=== PATIENT | male | born 1965 ===

== ENCOUNTER 2016-07-17 07:22 | Emergency (ER) | payer MEDICAID ==
[2016-07-17 07:22] VITALS: BMI 30.2
[2016-07-17 07:26] VITALS: BP 134/76; PULSE 63; RESP 18; TEMP 97.7; O2SAT 99
--- NOTE | 2016-07-17 07:39 | ED PDOC ---
HPI: CCC, URI, Sore Throat Time Seen by Provider: 07/17/16 07:31 Chief Complaint (Provider): sore throat History Per: Patient History/Exam Limitations: no limitations Have you had recent travel within the past 21 days to any of the following countries: [place], [place], [place] or [place]?: No Onset/Duration Of Symptoms: Days (x 1) Location Of Pain: Throat Sick Contacts (Context): None Associated Symptoms: Sore Throat. denies: Fever, Chills, Cough, Sputum Additional Complaint(s): Connor Gonzalez is a 51 year old male, with a previous medical history of hypercholesterolemia, who presents to the ED with complaints of a sore throat ongoing since yesterday. Patient denies any fever, cough or shortness of breath. PMD: none provided Past Medical History Reviewed: Historical Data, Nursing Documentation, Vital Signs Vital Signs: Last Vital Signs Temp 97.7 F 07/17/16 07:25 Pulse 63 07/17/16 07:25 Resp 18 07/17/16 07:25 BP 134/76 07/17/16 07:25 Pulse Ox 99 07/17/16 07:41 - Medical History PMH: Hypercholesterolemia, Hyperlipidemia Denies: Chronic Kidney Disease - Surgical History Surgical History: Cholecystectomy - Family History Family History: States: Unknown Family Hx - Home Medications Home Medications: Ambulatory Orders Medication Instructions Recorded Dicyclomine [Dicyclomine HCl] 10 mg PO TID 08/08/14 Esomeprazole Magnesium [Nexium] 40 mg PO DAILY #28 ecc 08/08/14 traMADol [Ultram] 50 mg PO TID #16 tab 08/08/14 Cetirizine Hydrochloride [Zyrtec] 10 mg PO DAILY #4 tab 01/07/15 Famotidine [Pepcid] 20 mg PO BID #8 tab 01/07/15 Prednisone 50 mg PO DAILY #4 tab 01/07/15 Cetirizine Hydrochloride [Zyrtec] 10 mg PO DAILY #30 tab 02/09/15 Prednisone 20 mg PO DAILY #5 tab 02/09/15 Albuterol HFA [Ventolin HFA 90 1 - 2 puff IH Q6 PRN #1 inhaler 02/22/16 mcg/actuation (8 g)] Azithromycin [Zithromax] 250 mg PO QAM #1 pkg 02/22/16 predniSONE [predniSONE Tab] 60 mg PO QAM #12 tab 02/22/16 Azithromycin [Zithromax] 250 mg PO DAILY #6 tab 07/17/16 - Allergies Allergies/Adverse Reactions: Allergies Allergy/AdvReac Type Severity Reaction Status Date / Time No Known Allergies Allergy Verified 02/09/15 02:29 Review of Systems ROS Statement: Except As Marked, All Systems Reviewed And Found Negative Constitutional: Negative for: Fever, Chills ENT: Positive for: Throat Pain Respiratory: Negative for: Cough, Shortness of Breath Physical Exam - Reviewed Nursing Documentation Reviewed: Yes Vital Signs Reviewed: Yes - Physical Exam Appears: Positive for: Well, Non-toxic, No Acute Distress ENT: Positive for: Pharyngeal Erythema. Negative for: Tonsillar Exudate, Tonsillar Swelling Neck: Positive for: Normal, Painless ROM, Supple Cardiovascular/Chest: Positive for: Regular Rate, Rhythm Respiratory: Positive for: CNT, Normal Breath Sounds Neurologic/Psych: Positive for: Alert, Oriented - ECG O2 Sat by Pulse Oximetry: 99 (RA) Pulse Ox Interpretation: Normal Medical Decision Making Medical Decision Making: Initial Impression: Throat pain Initial Plan: * rapid strep * reevaluation Scribe Attestation: Documented by Kami Bello, acting as a scribe for Gaurav Mercer MD. Provider Scribe Attestation: All medical record entries made by the Scribe were at my direction and personally dictated by me. I have reviewed the chart and agree that the record accurately reflects my personal performance of the history, physical exam, medical decision making, and the department course for this patient. I have also personally directed, reviewed, and agree with the discharge instructions and disposition. Disposition - Clinical Impression Clinical Impression: Pharyngitis - Patient ED Disposition Is Patient to be Admitted: No - Disposition Referrals: [facility] [Outside] Disposition: Routine/Home Disposition Time: 07:40 Condition: FAIR Prescriptions: Azithromycin [Zithromax] 250 mg PO DAILY #6 tab Instructions: Pharyngitis (ED)
== END 2016-07-17 07:50 | disposition home or self-care (01) ==
LOC: H.ER 07:22
DX: J02.9 Acute pharyngitis, unspecified (principal); E78.00 Pure hypercholesterolemia, unspecified

== ENCOUNTER 2017-01-25 20:48 | Emergency (ER) | payer MEDICAID ==
[2017-01-25 20:49] VITALS: BMI 29.2
[2017-01-25 21:45] VITALS: BP 148/71; PULSE 97; RESP 20; TEMP 97.6; O2SAT 97
--- NOTE | 2017-01-25 23:26 | ED PDOC ---
HPI: General Adult Time Seen by Provider: 01/25/17 22:44 Chief Complaint (Nursing): Dental Pain Chief Complaint (Provider): Mouth pain History Per: Patient History/Exam Limitations: no limitations Onset/Duration Of Symptoms: Hrs (2-3 hours prior to arrival) Severity: Mild (pain) Additional Complaint(s): Patient is a 51 yo male who presents to the ED reporting onset of mouth pain this evening that began after eating soup. He notes there is a blister in his mouth, and was advised by triage when he came here that it appeared bloody. He denies any history of similar symptoms, and denies any blood thinner use. He denies any sore throat. PMD: Mariel Nugent Past Medical History Reviewed: Historical Data, Nursing Documentation, Vital Signs Vital Signs: Last Vital Signs Temp 97.6 F 01/25/17 21:43 Pulse 97 H 01/25/17 21:43 Resp 20 01/25/17 21:43 BP 148/71 01/25/17 21:43 Pulse Ox 97 01/25/17 23:37 - Medical History PMH: Hypercholesterolemia, Hyperlipidemia Denies: Chronic Kidney Disease - Surgical History Surgical History: Cholecystectomy - Family History Family History: States: Unknown Family Hx - Social History Current smoker - smoking cessation education provided: No - Home Medications Home Medications: Ambulatory Orders Medication Instructions Recorded Dicyclomine [Dicyclomine HCl] 10 mg PO TID 08/08/14 Esomeprazole Magnesium [Nexium] 40 mg PO DAILY #28 ecc 08/08/14 traMADol [Ultram] 50 mg PO TID #16 tab 08/08/14 Cetirizine Hydrochloride [Zyrtec] 10 mg PO DAILY #4 tab 01/07/15 Famotidine [Pepcid] 20 mg PO BID #8 tab 01/07/15 Prednisone 50 mg PO DAILY #4 tab 01/07/15 Cetirizine Hydrochloride [Zyrtec] 10 mg PO DAILY #30 tab 02/09/15 Prednisone 20 mg PO DAILY #5 tab 02/09/15 Albuterol HFA [Ventolin HFA 90 1 - 2 puff IH Q6 PRN #1 inhaler 02/22/16 mcg/actuation (8 g)] Azithromycin [Zithromax] 250 mg PO QAM #1 pkg 02/22/16 predniSONE [predniSONE Tab] 60 mg PO QAM #12 tab 02/22/16 Azithromycin [Zithromax] 250 mg PO DAILY #6 tab 07/17/16 Albuterol HFA [Ventolin HFA 90 2 puff IH Q6 #200 puff 01/15/17 mcg/actuation (8 g)] Dextromethorphan Polistirex 30 mg PO BID #100 scar.er.12h 01/15/17 [Delsym] Mag&Al/Simet/Diphen/Lido [First 5 ml MM TID 2 Days #1 kit 01/25/17 Magic Mouthwash] - Allergies Allergies/Adverse Reactions: Allergies Allergy/AdvReac Type Severity Reaction Status Date / Time No Known Allergies Allergy Verified 02/09/15 02:29 Review of Systems Constitutional: Negative for: Fever, Chills ENT: Positive for: Mouth Pain (left upper mouth pain) Skin: Positive for: Rash (left upper mouth pain and blister) Neurological: Negative for: Change in Speech, Confusion, Altered Mental Status, Headache Physical Exam - Reviewed Vital Signs Reviewed: Yes - Physical Exam Appears: Positive for: Well. Negative for: Non-toxic, No Acute Distress Head Exam: Positive for: ATRAUMATIC, NORMAL INSPECTION, NORMOCEPHALIC Skin: Positive for: Normal Color, Warm ENT: Positive for: Pharynx Is (clear, no erythema, no edema), Other (blood blister approximately 1cm in diameter noted to the roof of the mouth on the left , (+)mild tenderness to palpation, (-)active bleeding). Negative for: Pharyngeal Erythema Neck: Positive for: Normal, Painless ROM, Supple Neurologic/Psych: Positive for: Alert, nanofabrication specialist II-XII, Oriented - ECG O2 Sat by Pulse Oximetry: 97 Pulse Ox Interpretation: Normal Medical Decision Making Medical Decision Making: Patient seen and examined. He was advised that he has a blood blister to the roof of the mouth which could have been sustained from eating hot soup. He advised to use magic mouthwash for pain, and to do salt water gargles. He was advised to f/u with his PMD or dentist, and return to the ED for any worsening or change in symptoms. Disposition - Clinical Impression Clinical Impression: Blood blister - Patient ED Disposition Is Patient to be Admitted: No Counseled Patient/Family Regarding: Diagnosis, Need For Followup, Rx Given - Disposition Referrals: [facility] [place] [Outside] Disposition: Routine/Home Disposition Time: 23:31 Condition: STABLE Additional Instructions: Salt water gargles or magic mouthwash. F/U with PMD/dentist, and return for any worsneing or change in symptoms. Prescriptions: Mag&Al/Simet/Diphen/Lido [First Magic Mouthwash] 5 ml MM TID 2 Days #1 kit Forms: [employer] (Yi) Print Language: WOLOF
== END 2017-01-25 23:52 | disposition home or self-care (01) ==
LOC: H.ER 20:48
DX: K13.79 Other lesions of oral mucosa (principal); E78.00 Pure hypercholesterolemia, unspecified

== ENCOUNTER 2017-07-15 04:15 | Emergency (ER) | payer MEDICAID ==
[2017-07-15 04:15] VITALS: BMI 29.2
[2017-07-15 04:36] VITALS: RESP 16; O2SAT 99
[2017-07-15] MEDS ORDERED: Apap-Butalbital-Caffeine 325-50-40mg Tab PO STA (04:49)
[2017-07-15] MEDS ORDERED: Apap-Butalbital-Caffeine 325-50-40mg Tab ONE (04:57)
--- NOTE | 2017-07-15 05:02 | ED PDOC ---
HPI: Headache Time Seen by Provider: 07/15/17 04:48 Chief Complaint (Nursing): Headache Chief Complaint (Provider): Headache History Per: Patient History/Exam Limitations: no limitations Onset/Duration Of Symptoms: Days (x3), Intermittent Episodes Current Symptoms Are (Timing): Still Present Preceeding Symptoms: None Associated Symptoms: denies: Photophobia Additional Complaint(s): 52 year old male presents to ED with complaints of intermittent headaches x3 days and has no past medical history. (+) drainage from his left ear last week and throat pain. (-) fever, neck pain, or light sensitivity. PCP: R[facility]i Past Medical History Reviewed: Historical Data, Nursing Documentation, Vital Signs Vital Signs: Last Vital Signs Temp 97.5 F L 07/15/17 04:32 Pulse 62 07/15/17 04:32 Resp 16 07/15/17 04:32 BP 137/87 07/15/17 04:32 Pulse Ox 99 07/15/17 04:32 - Medical History PMH: Hypercholesterolemia, Hyperlipidemia Denies: Chronic Kidney Disease - Surgical History Surgical History: Cholecystectomy - Family History Family History: States: Unknown Family Hx - Social History Current smoker - smoking cessation education provided: No Ex-Smoker (has not smoked in the last 12 months): No Alcohol: None Drugs: Denies - Home Medications Home Medications: Ambulatory Orders Medication Instructions Recorded Dicyclomine [Dicyclomine HCl] 10 mg PO TID 08/08/14 Esomeprazole Magnesium [Nexium] 40 mg PO DAILY #28 ecc 08/08/14 traMADol [Ultram] 50 mg PO TID #16 tab 08/08/14 Cetirizine Hydrochloride [Zyrtec] 10 mg PO DAILY #4 tab 01/07/15 Famotidine [Pepcid] 20 mg PO BID #8 tab 01/07/15 Prednisone 50 mg PO DAILY #4 tab 01/07/15 Cetirizine Hydrochloride [Zyrtec] 10 mg PO DAILY #30 tab 02/09/15 Prednisone 20 mg PO DAILY #5 tab 02/09/15 Albuterol HFA [Ventolin HFA 90 1 - 2 puff IH Q6 PRN #1 inhaler 02/22/16 mcg/actuation (8 g)] Azithromycin [Zithromax] 250 mg PO QAM #1 pkg 02/22/16 predniSONE [predniSONE Tab] 60 mg PO QAM #12 tab 02/22/16 Azithromycin [Zithromax] 250 mg PO DAILY #6 tab 07/17/16 Albuterol HFA [Ventolin HFA 90 2 puff IH Q6 #200 puff 01/15/17 mcg/actuation (8 g)] Dextromethorphan Polistirex 30 mg PO BID #100 scar.er.12h 01/15/17 [Delsym] Mag&Al/Simet/Diphen/Lido [First 5 ml MM TID 2 Days #1 kit 01/25/17 Magic Mouthwash] Acetaminophen/Butalbital/Caf 1 - 2 tab PO Q6 PRN #12 tab 07/15/17 [Fioricet] - Allergies Allergies/Adverse Reactions: Allergies Allergy/AdvReac Type Severity Reaction Status Date / Time No Known Allergies Allergy Verified 07/15/17 04:31 Review of Systems ROS Statement: Except As Marked, All Systems Reviewed And Found Negative Constitutional: Negative for: Fever Eyes: Negative for: Other ((-) light sensitivity) ENT: Positive for: Ear Discharge (from left ear) Musculoskeletal: Negative for: Neck Pain Neurological: Positive for: Headache Physical Exam - Reviewed Nursing Documentation Reviewed: Yes Vital Signs Reviewed: Yes - Physical Exam Appears: Positive for: Non-toxic, No Acute Distress Skin: Positive for: Normal Color, Warm, Dry Eye Exam: Positive for: Normal appearance, EOMI, PERRL ENT: Positive for: Tonsillar Swelling ( bilaterally with mild erythema). Negative for: Normal ENT Inspection, Tonsillar Exudate Neck: Positive for: Normal, Painless ROM, Supple Cardiovascular/Chest: Positive for: Regular Rate, Rhythm. Negative for: Murmur Respiratory: Positive for: Normal Breath Sounds. Negative for: Respiratory Distress Extremity: Positive for: Normal ROM. Negative for: Deformity Neurologic/Psych: Positive for: Alert, Oriented. Negative for: Motor/Sensory Deficits - ECG O2 Sat by Pulse Oximetry: 99 (RA) Pulse Ox Interpretation: Normal Medical Decision Making Medical Decision Makin Initial impression: headache in setting of flu-like symptoms Initial plan: * Fioricet 2 tab PO * Toradol 30mg IM * Influenza A B * Rapid strep * Re-eval Scribe Attestation: Documented by Erica Blevins acting as a scribe for Blaine Washington MD. Scribe Attestation: All medical record entries made by the Scribe were at my direction and personally dictated by me. I have reviewed the chart and agree that the record accurately reflects my personal performance of the history, physical exam, medical decision making, and the department course for this patient. I have also personally directed, reviewed, and agree with the discharge instructions and disposition. Disposition - Clinical Impression Clinical Impression: Headache - Disposition Referrals: Mariel Nugent FNP [Primary Care Provider] - Disposition: Routine/Home Disposition Time: 05:00 Condition: STABLE Prescriptions: Acetaminophen/Butalbital/Caf [Fioricet] 1 - 2 tab PO Q6 PRN #12 tab PRN Reason: Headache Instructions: Tension Headache Forms: [employer] (Syriac) Print Language: MAURITIAN
[2017-07-15 05:51] VITALS: BP 141/76; PULSE 74; TEMP 97.8
== END 2017-07-15 05:48 | disposition home or self-care (01) ==
LOC: H.ER 04:15
DX: R51 Headache (principal); Z87.891 Personal history of nicotine dependence; E78.00 Pure hypercholesterolemia, unspecified
CPT/HCPCS: 87070; 87430; 87804; 96372; 99284; J1885

== ENCOUNTER 2018-01-25 22:49 | Emergency (ER) | payer MEDICAID ==
[2018-01-25 22:50] VITALS: BMI 29.2
--- NOTE | 2018-01-25 23:30 | ED PDOC ---
HPI: CCC, URI, Sore Throat Time Seen by Provider: 01/25/18 23:14 Chief Complaint (Nursing): Cough, Cold, Congestion Chief Complaint (Provider): cough, congestion History Per: Patient History/Exam Limitations: no limitations Onset/Duration Of Symptoms: Days (4) Current Symptoms Are (Timing): Still Present Associated Symptoms: Sore Throat, Cough, Nasal Congestion Additional Complaint(s): 52 y/o male presents for evaluation of cough and congestion x 4 days. Patient report nasal congestion, sore throat, dry cough, and watery eyes. Denies fever, chest pain, shortness of breath, palpitations, vomiting, changes in bowel movements, urinary symptoms, recent travel. Patient's sick with similar symptoms. Past Medical History Reviewed: Historical Data, Nursing Documentation, Vital Signs Vital Signs: Last Vital Signs Temp 98.2 F 01/25/18 23:00 Pulse 69 01/25/18 23:00 Resp 16 01/25/18 23:00 BP 146/81 01/25/18 23:00 Pulse Ox 98 01/25/18 23:00 - Medical History PMH: Hypercholesterolemia, Hyperlipidemia Denies: Chronic Kidney Disease - Surgical History Surgical History: Cholecystectomy - Family History Family History: States: Unknown Family Hx - Home Medications Home Medications: Ambulatory Orders Medication Instructions Recorded Dicyclomine [Dicyclomine HCl] 10 mg PO TID 08/08/14 Esomeprazole Magnesium [Nexium] 40 mg PO DAILY #28 ecc 08/08/14 traMADol [Ultram] 50 mg PO TID #16 tab 08/08/14 Cetirizine Hydrochloride [Zyrtec] 10 mg PO DAILY #4 tab 01/07/15 Famotidine [Pepcid] 20 mg PO BID #8 tab 01/07/15 Prednisone 50 mg PO DAILY #4 tab 01/07/15 Cetirizine Hydrochloride [Zyrtec] 10 mg PO DAILY #30 tab 02/09/15 Prednisone 20 mg PO DAILY #5 tab 02/09/15 Albuterol HFA [Ventolin HFA 90 1 - 2 puff IH Q6 PRN #1 inhaler 02/22/16 mcg/actuation (8 g)] Azithromycin [Zithromax] 250 mg PO QAM #1 pkg 02/22/16 predniSONE [predniSONE Tab] 60 mg PO QAM #12 tab 02/22/16 Azithromycin [Zithromax] 250 mg PO DAILY #6 tab 07/17/16 Albuterol HFA [Ventolin HFA 90 2 puff IH Q6 #200 puff 01/15/17 mcg/actuation (8 g)] Dextromethorphan Polistirex 30 mg PO BID #100 scar.er.12h 01/15/17 [Delsym] Mag&Al/Simet/Diphen/Lido [First 5 ml MM TID 2 Days #1 kit 01/25/17 Magic Mouthwash] Acetaminophen/Butalbital/Caf 1 - 2 tab PO Q6 PRN #12 tab 07/15/17 [Fioricet] Fluticasone Nasal [Flonase] 1 actuation NS BID #1 bottle 01/26/18 Ibuprofen [Motrin Tab] 1 tab PO Q6 PRN #15 tab 01/26/18 Promethazine DM [Phenergan DM 5 ml PO Q6 PRN #1 bottle 01/26/18 Syrup] - Allergies Allergies/Adverse Reactions: Allergies Allergy/AdvReac Type Severity Reaction Status Date / Time No Known Allergies Allergy Verified 01/25/18 22:59 Review of Systems ROS Statement: Except As Marked, All Systems Reviewed And Found Negative ENT: Positive for: Nose Congestion, Throat Pain Respiratory: Positive for: Cough Physical Exam - Reviewed Nursing Documentation Reviewed: Yes Vital Signs Reviewed: Yes - Physical Exam Appears: Positive for: Well, Non-toxic, No Acute Distress Head Exam: Positive for: ATRAUMATIC, NORMAL INSPECTION, NORMOCEPHALIC Skin: Positive for: Normal Color ENT: Positive for: Nasal Congestion, Pharyngeal Erythema Cardiovascular/Chest: Positive for: Regular Rate, Rhythm Respiratory: Positive for: Normal Breath Sounds Gastrointestinal/Abdominal: Positive for: Normal Exam Back: Positive for: Normal Inspection Extremity: Positive for: Normal ROM Neurologic/Psych: Positive for: Alert, Oriented (x3) - ECG O2 Sat by Pulse Oximetry: 98 - Radiology X-Ray: Viewed By In X-Ray Interpretation: No Acute Disease - Progress ED Course And Treament: -CXR -influenza -rapid strep Patient educated on findings, discharged with rx Flonase, promethazine DM, ibuprofen Advised follow up PMD within 2-3 days Encouraged fluids, rest Return precautions given Disposition - Clinical Impression Clinical Impression: URI (upper respiratory infection) - Patient ED Disposition Is Patient to be Admitted: No Counseled Patient/Family Regarding: Studies Performed, Diagnosis, Need For Followup, Rx Given - Disposition Disposition: Routine/Home Disposition Time: 00:42 Condition: IMPROVED Prescriptions: Fluticasone Nasal [Flonase] 1 actuation NS BID #1 bottle Ibuprofen [Motrin Tab] 1 tab PO Q6 PRN #15 tab PRN Reason: Pain, Moderate (4-7) Promethazine DM [Phenergan DM Syrup] 5 ml PO Q6 PRN #1 bottle PRN Reason: Cough Instructions: Viral Upper Respiratory Infection, Adult (DC) Forms: [email or web address] (Azeri) Print Language: JAPANESE
[2018-01-26 01:03] VITALS: BP 117/75; PULSE 61; RESP 14; TEMP 97.8; O2SAT 97
--- NOTE | 2018-01-26 12:33 | RAD ---
Date of service: 01/25/2018 HISTORY: Cough COMPARISON: 01/15/2017. TECHNIQUE: Chest PA and lateral FINDINGS: LUNGS: No active pulmonary disease. PLEURA: No significant pleural effusion identified. No pneumothorax apparent. CARDIOVASCULAR: No aortic atherosclerotic calcification present. Normal cardiac size. No pulmonary vascular congestion. OSSEOUS STRUCTURES: No significant abnormalities. VISUALIZED UPPER ABDOMEN: Normal. OTHER FINDINGS: None. IMPRESSION: No active disease. No significant interval change compared to the prior examination(s).
== END 2018-01-26 01:05 | disposition home or self-care (01) ==
LOC: H.ER 22:49
DX: J06.9 Acute upper respiratory infection, unspecified (principal)

== ENCOUNTER 2018-05-08 22:00 | Emergency (ER) | payer OTHER, MEDICAID ==
[2018-05-08 22:00] VITALS: BMI 29.2
[2018-05-08 22:32] VITALS: BP 143/80; PULSE 61; RESP 16; TEMP 98.2; O2SAT 98
--- NOTE | 2018-05-08 22:57 | ED PDOC ---
HPI: Back Time Seen by Provider: 05/08/18 22:47 Chief Complaint (Nursing): Upper Extremity Problem/Injury Chief Complaint (Provider): low back pain History Per: Patient History/Exam Limitations: no limitations Additional Complaint(s): 52 y/o Male with hx of DM who was at work today when he was lifting a piece of furniture and began having low back pain. He was able to continue with his day but states that he has been having trouble with worsening pain after sitting when trying to stand or when bending forward. Denies numbness/tingling, fever/chills/night sweats. He has not taken anything for pain today. Past Medical History Reviewed: Historical Data, Nursing Documentation, Vital Signs Vital Signs: Last Vital Signs Temp 98.2 F 05/08/18 22:30 Pulse 61 05/08/18 22:30 Resp 16 05/08/18 22:30 BP 143/80 05/08/18 22:30 Pulse Ox 98 05/08/18 22:30 - Medical History PMH: Diabetes, Hypercholesterolemia, Hyperlipidemia Denies: Chronic Kidney Disease - Surgical History Surgical History: Cholecystectomy - Family History Family History: States: Unknown Family Hx - Home Medications Home Medications: Ambulatory Orders Medication Instructions Recorded Dicyclomine [Dicyclomine HCl] 10 mg PO TID 08/08/14 Esomeprazole Magnesium [Nexium] 40 mg PO DAILY #28 ecc 08/08/14 traMADol [Ultram] 50 mg PO TID #16 tab 08/08/14 Cetirizine Hydrochloride [Zyrtec] 10 mg PO DAILY #4 tab 01/07/15 Famotidine [Pepcid] 20 mg PO BID #8 tab 01/07/15 Prednisone 50 mg PO DAILY #4 tab 01/07/15 Cetirizine Hydrochloride [Zyrtec] 10 mg PO DAILY #30 tab 02/09/15 Prednisone 20 mg PO DAILY #5 tab 02/09/15 Albuterol HFA [Ventolin HFA 90 1 - 2 puff IH Q6 PRN #1 inhaler 02/22/16 mcg/actuation (8 g)] Azithromycin [Zithromax] 250 mg PO QAM #1 pkg 02/22/16 predniSONE [predniSONE Tab] 60 mg PO QAM #12 tab 02/22/16 Azithromycin [Zithromax] 250 mg PO DAILY #6 tab 05/13/17 Albuterol HFA [Ventolin HFA 90 2 puff IH Q6 #200 puff 01/15/17 mcg/actuation (8 g)] Dextromethorphan Polistirex 30 mg PO BID #100 scar.er.12h 01/15/17 [Delsym] Mag&Al/Simet/Diphen/Lido [First 5 ml MM TID 2 Days #1 kit 01/25/17 Magic Mouthwash] Acetaminophen/Butalbital/Caf 1 - 2 tab PO Q6 PRN #12 tab 07/15/17 [Fioricet] Fluticasone Nasal [Flonase] 1 actuation NS BID #1 bottle 01/26/18 Ibuprofen [Motrin Tab] 1 tab PO Q6 PRN #15 tab 01/26/18 Promethazine DM [Phenergan DM 5 ml PO Q6 PRN #1 bottle 01/26/18 Syrup] Cyclobenzaprine [Cyclobenzaprine 10 mg PO Q8 PRN 5 Days tab 05/08/18 HCl] Ibuprofen [Motrin Tab] 800 mg PO Q6 PRN 7 Days tab 05/08/18 - Allergies Allergies/Adverse Reactions: Allergies Allergy/AdvReac Type Severity Reaction Status Date / Time No Known Allergies Allergy Verified 01/25/18 22:59 Review of Systems Constitutional: Negative for: Fever, Chills Musculoskeletal: Positive for: Back Pain Neurological: Negative for: Weakness, Numbness Physical Exam - Reviewed Nursing Documentation Reviewed: Yes Vital Signs Reviewed: Yes - Physical Exam Appears: Positive for: Non-toxic Skin: Positive for: Normal Color Back: Positive for: Vertebral Tenderness (+ lumbar spinal tenderness on palpation. No erythema/edema.), Decreased ROM (flexion of back) Extremity: Positive for: Normal ROM (with flexion and extension of B/L knees. + mild pain with flexion of B/L hips. ) - ECG O2 Sat by Pulse Oximetry: 98 Disposition - Clinical Impression Clinical Impression: Low back pain - Patient ED Disposition Is Patient to be Admitted: No Counseled Patient/Family Regarding: Diagnosis, Need For Followup, Rx Given - Disposition Referrals: Mariel Nugent FNP [Family Provider] - Disposition: Routine/Home Disposition Time: 23:51 Condition: IMPROVED Additional Instructions: Use Ibuprofen and Cyclobenzaprine fairly regularly over the next couple of days. Avoid taking Flexeril if you will be driving or operating heavy machinery as it may make you sleepy. Follow up with your primary care doctor if pain persists for further evaluation. Prescriptions: Cyclobenzaprine [Cyclobenzaprine HCl] 10 mg PO Q8 PRN 5 Days tab PRN Reason: Muscle Spasm Ibuprofen [Motrin Tab] 800 mg PO Q6 PRN 7 Days tab PRN Reason: Pain, Moderate (4-7) Instructions: Low Back Pain (DC) Forms: [employer] [facility] (Kinyarwanda), [facility] ED School/Work Excuse Print Language: WALLISIAN
== END 2018-05-08 23:51 | disposition home or self-care (01) ==
LOC: H.ER 22:00
DX: M54.5 Low back pain (principal)
CPT/HCPCS: 96372; 99283; J1885